=== PATIENT | female | born 1955 | race Two or more races ===

== ENCOUNTER → 2018-07-16 | Outpatient (CLI) | payer OTHER | END | disposition home or self-care (01) | LOC: NUCLEAR 09:23 | DX: M81.0 Age-related osteoporosis without current pathological fracture (principal) ==

== ENCOUNTER 2019-09-18 09:08 | Outpatient (CLI) | payer OTHER | END 2019-09-18 09:14 | disposition home or self-care (01) | LOC: NUCLEAR 09:08 | DX: M81.0 Age-related osteoporosis without current pathological fracture (principal) ==

== ENCOUNTER 2020-11-24 14:26 | Outpatient (CLI) | payer OTHER | END 2020-11-24 14:27 | disposition home or self-care (01) | LOC: NUCLEAR 14:26 | DX: M81.0 Age-related osteoporosis without current pathological fracture (principal) ==

== ENCOUNTER 2021-12-18 12:33 | Outpatient (CLI) | payer OTHER | END 2021-12-18 12:35 | disposition home or self-care (01) | LOC: NUCLEAR 12:33 | PROVIDERS: ATTEND Internal Medicine | DX: M85.80 Other specified disorders of bone density and structure, unspecified site (principal) ==

== ENCOUNTER 2023-03-08 12:52 | Outpatient (CLI) | payer OTHER | END 2023-03-08 12:54 | disposition home or self-care (01) | LOC: NUCLEAR 12:52 | PROVIDERS: ATTEND Internal Medicine Rheumatology | DX: M81.0 Age-related osteoporosis without current pathological fracture (principal) ==

== ENCOUNTER 2024-06-10 12:30 | Outpatient (CLI) | payer OTHER | END 2024-06-10 12:32 | disposition home or self-care (01) | LOC: NUCLEAR 12:30 | PROVIDERS: ATTEND Internal Medicine Rheumatology | DX: M81.0 Age-related osteoporosis without current pathological fracture (principal) ==